=== PATIENT | female | born 2000 | race Caucasian/White ===

== ENCOUNTER 2023-03-22 16:16 | Inpatient (IN) | payer OTHER ==
[~2023-03-22] VITALS: Ht 165.1 cm; Wt 116.7 kg
[2023-03-25] VITALS (13 sets, daily range): BP systolic 95–134; BP diastolic 51–86; PULSE 65–88; TEMP 98–98.3
--- NOTE | 2023-03-25 19:20 | NUR ---
PT AMBULATES TO LABOR ROOM WITH SPOUSE AT SIDE FOR SCHEDULED IOL WITH CYTOTEC FOR PIH. PT STATES SHE HAS FELT MOVEMENT AND DENIES LEAKING OF FLUID, BLEEDING OR CONTRACTIONS AT THIS TIME. EFM TRACING AND TOCO PLACED. VITAL SIGNS ARE STABLE. IV PLACED, LABS DRAWN PER ORDERS.
[2023-03-25 19:51] LABS: COLLECTION METHOD CLEAN CATCH
[2023-03-25 19:57] LABS: BASO % 0.3 % (0.0-2.0); EOS # 0.5 K/mm3 (0.0-0.7); EOS % 4.8 % (0.0-4.0); GRAN # 5.2 K/mm3 (1.4-6.5); GRAN % 52.4 % (42.2-75.2); HEMOGLOBIN 12.1 g/dl (12.5-16.0); LYMPH # 3.3 K/mm3 (1.2-3.4); LYMPH % 33.5 % (20.0-51.0); MEAN CELL VOLUME 65 fl (80.0-100.0); MEAN CORPUSCULAR HEMOGLOBIN 22 pg (27-31); MEAN CORPUSCULAR HGB CONC 34 g/dl (33.0-37.0); MEAN PLATELET VOLUME 10.1 fl (7.4-10.4); MONO # 0.8 K/mm3 (0.1-0.6); MONO % 8.4 % (1.7-9.3); PLATELET COUNT 369 K/mm3 (130-400); RED BLOOD COUNT 5.51 M/mm3 (4.10-5.30); REDCELL DISTRIBUTION WIDTH-CV 16.4 % (11.5-14.5)
[2023-03-25 19:59] LABS: URINE BACTERIA None Seen /hpf (NONE SEEN); URINE WBC 0-2 /hpf (0-2)
[2023-03-25] MEDS ORDERED: ASPIRIN 81M81 MG/TA2 PO (20:00)
[2023-03-25] MEDS ORDERED: MAGNESIUM500 MG PO (20:01)
[2023-03-25] MEDS ORDERED: PROAIR HFA0.09 MG/AC IH (20:01)
[2023-03-25] MEDS ORDERED: REGLAN 10MG10 MG/TAB PO (20:02)
[2023-03-25] MEDS ORDERED: PNV-SELECT1 TAB PO (20:02)
[2023-03-25 20:06] LABS: PH 6.5 (5.0-8.5); URINE APPEARANCE Clear (CLEAR/HAZY); URINE BLOOD Negative (NEGATIVE); URINE COLOR Yellow (YELLOW); URINE GLUCOSE Negative (NEGATIVE); URINE KETONE Negative (NEGATIVE); URINE NITRATE Negative (NEGATIVE); URINE PROTEIN(semi-quant) Negative (NEGATIVE); URINE UROBILINOGEN 0.2 E.U/dL (0.2-1.0)
[2023-03-25 20:15] LABS: BILIRUBIN,TOTAL 0.3 mg/dL (0.2-1.2); CALCIUM 9.2 mg/dL (8.4-10.2); CREATININE, serum 0.6 mg/dL (0.57-1.11); POTASSIUM 3.8 mmol/L (3.5-4.5)
[2023-03-26] VITALS (71 sets, daily range): BP systolic 97–160; BP diastolic 55–93; PULSE 67–100; TEMP 97.4–98.1
--- NOTE | 2023-03-26 00:15 | NUR ---
DIFFICULTY EFM TRACING D/T MATERNAL HABITUS AND POSITIONING DURING SVE.
--- NOTE | 2023-03-26 03:42 | NUR ---
PT UP TO SHOWER AT THIS TIME.
--- NOTE | 2023-03-26 08:15 | NUR ---
0808- Pt onto BB. EFM and TOCO adjusted, FHR tracing intermittently, UC not tracing well, this RN remains at bedside with Pt.
--- NOTE | 2023-03-26 08:30 | NUR ---
0824- FHR not tracing well. RN at bedside adjusted monitors.
--- NOTE | 2023-03-26 09:30 | NUR ---
0919- Portable monitor on and tracing well. 0924- Pt begins ambulating in hallway. FHR tracing materal HR. Adjusted multiple times, continues monitoring maternal HR intermittently. 0937- Pt back to bed. US adjusted to tracing. FSE placed without difficulty. SVE 3/-2. TOCO adjusted. 0947- Pt repositioned to LL. FHR recurrent variables noted with each contraction. 0954- Pt repositioned to RL. 0957- FHR deep variables continue. Pitocin off. IVF bolus initiated. SVE 3-//-2. Pt repositioned to [place] position.
--- NOTE | 2023-03-26 12:30 | NUR ---
1224- Dr Haines at bedside, SVE /-2. Reviews strip at bedside since decels started. gives VORB to restart Pitocin at 2mu. Pt up to void.
--- NOTE | 2023-03-26 12:45 | NUR ---
1229- Dr Haines to bedside to place IUPC, placed without difficulty, bloody fluid noted in IUCP catheter. Pt tolerated well. MD remains at bedside for approx 15mins monitoring UCs then remains at nurses station monitoring strip until approx 1315.
--- NOTE | 2023-03-26 13:30 | NUR ---
1315- Pt up to void. CDmitry, TRIP at bedside. 1318- Pt sitting on side of bed for epidural placement. FSE and TOCO plugged in, FHR not tracing with FSE, noted to be disconected from scalp. External US applied, difficulty tracing due to maternal position. 1323- Single shot by BOLTING MACHINE OPERATOR, see anesthesia record. 1328- Pt assisted to semi-fowlers with WL. US adjusted to tracing. Pt tolerated procedure well. This RN remains at bedside monitoring BP.
--- NOTE | 2023-03-26 15:15 | NUR ---
1503- Romero placed without difficulty, SVE /-2. FSE disconnected from head with exam. 1506- FSE replaced. Pt assited to LL with RLS. FHR late decelerations noted followed by variable with next UC.
--- NOTE | 2023-03-26 16:07 | NUR ---
1545- SVE complete/+2 after 2 deep variable down to the 60-70's. Dr Haines called and updated, coming to hospital for delivery. 1548- Romero removed without difficulty. FHR acceleration to 170-180's, lasting approx 17 mins until baby delivered at 1607, with recurrent variables. 1553- Pitocin off. Pt repositioned to . This RN remains at bedside. 1604- Dr Haines at bedside. [facility]- Pt pushes with UC, of viable female infant, tended to by nursery RN. Cord clamped and cut, placed skin-2-skin. Cord blood obtained. 1614- Spontaneous delivery of placenta, Pitocin started at 333ml/hr. Fundus massaged to firm by . Perineum intact. Pericare completed. Clean chux and Ice pack to perineum. Pt tolerated well.
--- NOTE | 2023-03-26 20:10 | NUR ---
DISCHARGE INSTRUCTIONS REVIEWED. QUESTIONS ASKED AND ANSWERED. THE PATIENT WAS ABLE TO SHOWER, AND URINATE PRIOR TO DISCHARGE. IV REMOVED. THE PATIENT WAS ESCORTED OUT BY STAFF AT 2009. PT'S BABY GIRL WAS TRANSFERRED TO [facility], DISCHARGED EARLY D/T PATIENTS DESIRE TO TRAVEL TO [place] TO BE WITH CHILD.
== END 2023-03-26 20:10 | disposition home or self-care (01) | DRG 807 ==
LOC: OB 03-25 14:25 → LDR 03-25 19:10 → OB 03-26 11:13 → LDR 03-26 20:10
PROVIDERS: ADMIT Obstetrics & Gynecology
PROC: 10E0XZZ Delivery of Products of Conception, External Approach (ICD-10-PCS; principal; 2023-03-26)
PROC: 3E033VJ Introduction of Other Hormone into Peripheral Vein, Percutaneous Approach (ICD-10-PCS; 2023-03-26)
DX: O99.214 Obesity complicating childbirth (principal); Z37.0 Single live birth; Z3A.37 37 weeks gestation of pregnancy; O76 Abnormality in fetal heart rate and rhythm complicating labor and delivery
CPT/HCPCS: J2210; J2590; J2795; J7120